=== PATIENT | male | born 1985 | race Two or more races ===

== ENCOUNTER 2024-12-10 22:20 | Emergency (ER) | payer MEDICAID, SELFPAY ==
[2024-12-10 22:21] VITALS: BMI 23.6
--- NOTE | 2024-12-10 22:30 | EDNOTE_ITS ---
ED Abdominal Pain RME/HPI General Chief Complaint: Abdominal Pain Stated complaint: ABDOMINAL PAIN Time seen by provider: 12/10/24 22:58 Arrival date/time: 12/10/24 22:20 RME / HPI RME / HPI narrative: See [facility] for Dr. Dewey's HPI documentation. Related Data Previous Rx's ?Medication ?Instructions ?Recorded acetaminophen 300 mg-codeine 30 mg 2 tab PO Q8H PRN pa in #10 tabs 12/11/24 tablet cefdinir 300 mg capsule 300 mg PO BID 5 days #10 cap s 12/11/24 metronidazole 500 mg tablet 500 mg PO BID 5 days #10 t abs 12/11/24 ondansetron 4 mg disintegrating 4 mg PO TID PRN nausea and 12/11/24 tablet vomiting 30 days #10 tabs Allergies Allergy/AdvReac Type Severity Reaction Status Date / Time No Known Allergies Allergy Verified 12/10/24 23:15 Review of Systems Review of Systems Systems Reviewed: All systems reviewed, normal except as documented Past Medical History Social History SMOKING STATUS: Never smoker ED Exam Narrative Physical exam: See [facility] for Dr. Dewey's physical exam documentation. Course Quality Measures none Orders Category Date Time Status CT Screening NOW Care 12/10/24 22:59 Active Saline [Insert IV] NOW Care 12/10/24 22:[address] abdomen pelvis w con Stat Exams 12/10/24 22:59 Taken US gall bladder Stat Exams 12/11/24 01:16 Taken Amylase Stat Lab 12/10/24 23:24 Completed Bilirubin,Direct Stat Lab 12/10/24 23:24 Completed CBC Stat Lab 12/10/24 23:24 Completed CMP [Comprehensive Metabolic Panel] Stat Lab 12/10/24 23:24 Completed Lipase Stat Lab 12/10/24 23:24 Completed Magnesium Stat Lab 12/10/24 23:24 Completed UA, C/S IF [Urinalysis, C/S if Indicated] Stat Lab 12/10/24 23:44 Completed Famotidine Inj [Pepcid Inj] Med 12/10/24 22:58 Discontinued 20 mg IVP X1 ONE Ketorolac Inj [Toradol Inj] Med 12/10/24 22:58 Discontinued 30 mg IVP X1 ONE Morphine* Inj Med 12/10/24 22:58 Discontinued 4 mg IV X1 ONE Ondansetron Inj [Zofran Inj] Med 12/10/24 22:58 Discontinued 4 mg IVP X1 ONE Pantoprazole Inj [Protonix Inj] Med 12/10/24 22:58 Discontinued 40 mg IVP X1 ONE Sodium Chloride 0.9% 1000 ml [Ns] 1,000 ml Med 12/10/24 22:58 Discontinued IV 999 mls/hr cefTRIAXone/D5w 1gm IV premix [Rocephin/D5w 1gm IV Med 12/11/24 02:45 Discontinued premix] 1 gm in 50 ml IV X1 metroNIDAZOLE/NS 500 MG IVPB [Flagyl 500 mg IV] Med 12/11/24 02:45 Disco ntinued 500 mg in 100 ml IV X1 Vital Signs Vital signs: Vital Signs Temperature 98.0 F 12/10/24 22:46 Pulse Rate 92 12/10/24 22:46 Respiratory Rate 18 12/10/24 22:46 Blood Pressure 115/73 12/10/24 22:46 Pulse Oximetry (%) 95 12/10/24 22:46 Oxygen Delivery Method Room Air 12/10/24 22:46 Abdominal Pain MDM MDM Narrative MDM Narrative:: This section includes all my notes and documentations, including HPI, PE, and ED course. Jose Dewey MD HPI: 38-year-old male here with several hours of abdominal pain and vomiting and diarrhea. No history of abdominal surgery. No other complaints. ROS: All negative except as documented in HPI. Physical Exam: General: Alert and oriented. In obvious pain. Eyes: Conjunctivae and lids clear. ENT: No nasal congestion. Neck: Supple. Heart: RRR. Lungs: No respiratory distress. Good air movement. No rhonchi, wheezing, rales. Abdomen: Soft and severe diffuse tenderness, difficult to localize. Normal bowel sounds. No distension. No rebound or guarding. Back: No CVA tenderness. Skin: Warm and dry. Neuro: Alert and oriented X 3. I reviewed all diagnostic test results. My review of the gallbladder report is NAD. My review of the CT abdomen pelvis report is enteritis. Blood/urine test remarkable for leukocytosis. At this point, diagnoses include: Enteritis Treatment here included: IVF Zofran 4 mg IV Toradol 30 mg IV Morphine 4 mg IV Famotidine 20 mg IV and Protonix 40 mg IV Rocephin 1 g IV and Flagyl 500 mg IV Recommended more outpatient care. Based on my best medical judgment, made decision no further evaluation or treatment indicated at this time. Patient understands and agrees to the discharge instructions customized and printed, see below. Discharge instructions from Dr. Dewey: 1. After evaluation, your symptoms are due to infection/inflammation of your intestines. 2. Take Cipro and Flagyl for the infection. 3. Zofran for nausea/vomiting. 4. Tylenol with codeine for severe pain. 5. Clear liquid diet for 24 hours then advance as tolerated. 6. To prevent dehydration, increase oral fluid and maintain clear urine. If dark or yellow, increase oral fluid. 7. See a private doctor on 12/13/2024 for recheck. Ask to review all test results and official radiology reports, to make sure you receive all necessary follow-ups and monitoring. To assess for serious intra-abdominal condition, ask for help with more investigation not available here in the ER. Such as EGD or scoping the stomach, colonoscopy or scoping the colon, and referral to see matrix bath attendant. 8. Seek immediate medical care with worsening, fever, or with any concerns. Jose Dewey MD Patient data External records reviewed:: [facility] previous records (Per chart review, patient has no previous ED visits or admissions to this facility.) Clinical information provided by:: patient Social determinants that could affect healthcare access:: none Patient has the following chronic illnesses:: none How is presenting disease/condition affected by chronic disease/condition?: no chronic disease Evaluation data The following diagnostics were reviewed and interpreted by me:: lab results and radiology exam(s) Lab and/or radiology exams considered but not ordered:: none Interpretation Summary: I reviewed all diagnostic test results. My review of the gallbladder report is NAD. My review of the CT abdomen pelvis report is enteritis. Blood/urine test remarkable for leukocytosis. Medications / Prescriptions Medications or Prescriptions considered but not ordered:: none Medication administrations:: Medication Administration History Discontinued Medications Famotidine (Famotidine Inj 10 Mg/Ml Vial 2 Ml) 20 mg IVP X1 ONE Stop: 12/10/24 22:59 Last Admin: 12/10/24 23:53 Dose: 20 mg Documented By: AM Sodium Chloride (Ns) 1,000 mls @ 999 mls/hr IV .Q1H1M ONE Stop: 12/10/24 23:58 Last Infusion: 12/11/24 02:50 Dose: Infused Documented By: Admin: 12/10/24 23:53 Dose: 999 mls/hr Documented By: AM Ceftriaxone Sodium/Dextrose (Rocephin/D5w 1gm Iv Premix) 1 gm in 50 mls @ 100 mls/hr IV X1 ONE Stop: 12/11/24 03:14 Last Infusion: 12/11/24 03:49 Dose: Infused Documented By: Admin: 12/11/24 03:16 Dose: 100 mls/hr Documented By: AM Metronidazole (Flagyl 500 Mg Iv) 500 mg in 100 mls @ 100 mls/hr IV X1 ONE Stop: 12/11/24 03:44 Last Admin: 12/11/24 03:51 Dose: 100 mls/hr Documented By: AM Ketorolac Tromethamine (Ketorolac Inj 30 Mg/Ml Vial) 30 mg IVP X1 ONE Stop: 12/10/24 22:59 Last Admin: 12/10/24 23:52 Dose: 30 mg Documented By: AM Morphine Sulfate (Morphine Sulf Inj 4 Mg/Ml Vial) 4 mg IV X1 ONE Stop: 12/10/24 22:59 Last Admin: 12/10/24 23:53 Dose: 4 mg Documented By: AM Ondansetron HCl (Ondansetron Inj 2 Mg/Ml Inj 2 Ml) 4 mg IVP X1 ONE; Protocol Stop: 12/10/24 22:59 Last Admin: 12/10/24 23:52 Dose: 4 mg Documented By: AM Pantoprazole Sodium (Pantoprazole Inj 40 Mg Vial) 40 mg IVP X1 ONE Stop: 12/10/24 22:59 Last Admin: 12/10/24 23:52 Dose: 40 mg Documented By: AM Treatment here included: IVF Zofran 4 mg IV Toradol 30 mg IV Morphine 4 mg IV Famotidine 20 mg IV and Protonix 40 mg IV Rocephin 1 g IV and Flagyl 500 mg IV Consultations Consultation(s) initiated? (list below): No Diagnosis Differential diagnosis abdominal pain: acute appendicitis, calculus of kidney, diverticulitis, gastroenteritis, pancreatitis and small bowel obstruction Most likely diagnosis given after review of the tests above:: Enteritis Admission Indicated Admission indicated?: not indicated Explain why admission is indicated or not indicated:: With significant improvement and no condition needing emergent intervention, there was no indication for admission. Admission Request Was there a request for admission?: No Disposition Plan Disposition Plan: Discharge Discharge Attestation Discharge Attestation: The patient and all family members were given an opportunity to ask questions and understood the discharge instructions. Discharge instructions specifically effects, indications for sooner follow up or return to the emergency department, and the expected course of current diagnosis. Patient condition: Stable Discharge Plan Plan Patient Disposition: HOME (Self Care) Prescriptions/Referrals Prescriptions/Med Rec: New metronidazole 500 mg tablet 500 mg PO BID 5 Days Qty: 10 0RF acetaminophen-codeine 300-30 mg tablet 2 tab PO Q8H MDD 6 PRN (Reason: pain) Qty: 10 0RF ondansetron 4 mg tablet,disintegrating 4 mg PO TID PRN (Reason: nausea and vomiting) 30 Days Qty: 10 0RF cefdinir 300 mg capsule 300 mg PO BID 5 Days Qty: 10 0RF Referrals: Darwin Gold MD [Primary Care Provider, Family Practice] - In 1 week Problem List Clinical Impression: Enteritis Patient/Caregiver Discharge Instructions Discharge Activity: activity as tolerated Education Materials: ED Gastroenteritis, Noninfectious Additional Instructions: Discharge instructions from Dr. Dewey: 1. After evaluation, your symptoms are due to infection/inflammation of your intestines. 2. Take Cipro and Flagyl for the infection. 3. Zofran for nausea/vomiting. 4. Tylenol with codeine for severe pain. 5. Clear liquid diet for 24 hours then advance as tolerated. 6. To prevent dehydration, increase oral fluid and maintain clear urine.? If dark or yellow, increase oral fluid. 7. See a private doctor on 12/13/2024 for recheck. Ask to review all test results and official radiology reports, to make sure you receive all necessary follow-ups and monitoring. To assess for serious intra-abdominal condition, ask for help with more investigation not available here in the ER.? Such as EGD or scoping the stomach, colonoscopy or scoping the colon, and referral to see matrix bath attendant. 8. Seek immediate medical care with worsening, fever, or with any concerns. Instrucciones de nga del Dr. Dewey: 1. Tras la evaluaci?n, fallon s?ntomas se deben a claribel infecci?n/inflamaci?n intestinal. 2. Blawnox Cipro y Flagyl para la infecci?n. 3. Zofran para las n?useas/v?mitos. 4. Tylenol con code?na para el dolor intenso. 5. Dieta l?quida emily steve 24 horas; luego, aumente la dosis seg?n la tolerancia. 6. Para prevenir la deshidrataci?n, aumente la ingesta de l?quidos y mantenga la orina emily. Si la orina es oscura o amarilla, aumente la ingesta de l?quidos. 7. Consulte a un m?dico particular el 2024 para claribel revisi?n. Solicite revisar todos los resultados de las pruebas y los informes radiol?gicos oficiales para asegurarse de recibir el seguimiento y la monitorizaci?n necesarios. Para evaluar claribel posible afecci?n intraabdominal grave, solicite ayuda con estudios adicionales que no est?n disponibles en urgencias, jaron claribel endoscopia digestiva nga (TUNG), claribel colonoscopia y claribel derivaci?n a un gastroenter?logo. 8. Busque atenci?n m?dica inmediata si empeora, presenta fiebre o cualquier otra preocupaci?n. Print Language: Lithuanian Stand Alone Forms: [employer]ady Award Info., Patient Portal Info Letter
[2024-12-10 22:46] VITALS: BP 115/73; PULSE 92; RESP 18; TEMP 36.7; O2SAT 95
--- NOTE | 2024-12-10 22:59 | XR_ITS ---
Examination: CT abdomen with intravenous contrast CT pelvis with intravenous contrast 2-D coronal reconstructions 2-D sagittal reconstructions Date and time of exam: December 11, 2024, 0101 hours INDICATIONS: Severe abdominal pain onset today. CTDI: vol (mGy) 6.57 DLP: (mGycm) 393 Technique: Multiple axial sections of the abdomen and pelvis have been obtained. 64 slice high-resolution scanner used. 3 mm axial sections have been obtained, post intravenous injection 60 cc [id number] 2-D sagittal, coronal reconstructions obtained. Low dose protocols were performed. One or more of the following dose reduction techniques were used; automated exposure control, adjustment of the mA and/or KV according to patient size, use of iterative reconstruction technique. Findings: No visualized liver or splenic lesion No gallstones No pancreatic or adrenal mass 1 mm upper pole nonobstructing left renal calculus, no renal edema hydronephrosis or ureteral calculi Normal appendix Moderate degenerative disc disease L5-S1 Abnormal small bowel, fluid distended with wall thickening, no incarcerated hernia defect No prostatomegaly Urinary bladder intact Osseous structures intact IMPRESSION: 1 mm upper pole nonobstructing left renal calculus Abnormal small bowel, fluid distended with wall thickening, differential would include enteritis such as Crohn's disease, early small bowel obstruction not excluded, clinical correlation and follow-up advised
[2024-12-10] MEDS: KETOROLAC INJ 30 MG/ML VIAL IVP (23:52)
[2024-12-10] MEDS: ONDANSETRON INJ 2 MG/ML INJ 2 ML 4 MG IVP (23:52)
[2024-12-10] MEDS: FAMOTIDINE INJ 10 MG/ML VIAL 2 ML 20 MG IVP (23:53)
[2024-12-10] MEDS: SODIUM CHLORIDE 0.9% 1000 ML 1,000 ML 999 ML IV (23:53)
[2024-12-10] MEDS: MORPHINE SULF INJ 4 MG/ML VIAL IV (23:53)
[2024-12-10 23:54] LABS: Collection Type, Urine Clean Catch
[2024-12-10 23:55] LABS: Basophils # (Auto) 0.0 Thou/mm3 (0.0-0.2); Basophils % (Auto) 0 % (0-2.5); Eosinophils # (Auto) 0.0 Thou/mm3 (0.0-0.5); Eosinophils % (Auto) 0 % (0-10); Hematocrit 42.2 % (41.0-53.0); Hemoglobin 14.4 g/dL (13.5-16.0); Immature Granulocytes Auto 0.06 Thou/mm3 (0.00-0.00); Lymphocytes # (Auto) 0.8 Thou/mm3 (1.0-4.8); Lymphocytes % (Auto) 6 % (10-50); Mean Corpuscular HGB Conc 34.1 g/dl (31.0-37.0); Mean Corpuscular Hemoglobin 31.1 pg (25.0-35.0); Mean Corpuscular Volume 91 fL (80-100); Monocytes # (Auto) 0.4 Thou/mm3 (0.0-0.8); Monocytes % (Auto) 3 % (0-12); Neutrophils # (Auto) 13.2 Thou/mm3 (1.8-7.7); Neutrophils % (Auto) 91 % (37-80); Nucleated Red Blood Cell # 0.00 Thou/mm3 (0.00-0.00); Nucleated Red Blood Cell % 0 /100 WBC (0); Platelet Count 274 Thou/mm3 (140-440); RDW Standard Deviation 45.4 fL (35.1-43.9); Red Blood Count 4.63 Miln/mm3 (4.50-5.90); White Blood Count 14.6 Thou/mm3 (3.8-10.6)
[2024-12-11] LABS: Bilirubin,Urine Negative (Negative); Blood,Urine Negative (Negative); Clarity,Urine Clear (Clear/Hazy); Color,Urine Yellow (Lt Yel-Yel); Culture Indicated,Urine Not Indicated; Glucose, Urine Negative (Negative); Ketones,Urine Negative (Negative); Leukocyte Esterase,Urine Negative (Negative); Nitrite,Urine Negative (Negative); PH,Urine 6.5 (5.0-7.0); Protein,Urine Trace (Neg - Trace); RBC,Urine 13 /hpf (0-3); Specific Gravity,Urine 1.029 (1.001-1.035); Squamous Epithelial Cell,Urine < 1 /hpf (0-5); Urobilinogen,Urine Negative mg/dL (0.0-1.0); WBC,Urine 2 /hpf (0-5)
[2024-12-11 00:14] LABS: Alanine Aminotransferase 25 U/L (10-49); Albumin, Serum 5.0 gm/dL (3.5-5.0); Albumin/Globulin Ratio 2.0 (1.2-2.2); Alkaline Phosphatase 99 U/L (46-116); Amylase 86 U/L (30-118); Anion Gap 12 (7-16); Aspartate Amino Transferase 36 U/L (0-34); BUN/Creatinine Ratio 14 Ratio (12-20); Bilirubin,Direct 0.2 mg/dL (0.0-0.3); Bilirubin,Total 0.7 mg/dL (0.3-1.2); Blood Urea Nitrogen 15 mg/dL (9-23); Calcium 10.0 mg/dL (8.3-10.6); Calcium (Corrected) 10.0 mg/dL (8.5-10.1); Carbon Dioxide 30.3 mMol/L (20.0-31.0); Chloride 100 mMol/L (98-107); Creatinine (Component) 1.1 mg/dL (0.6-1.3); Estimated Creatinine Clearance 94.9 mL/min (>60); Globulin 2.5 gm/dL (2.3-3.5); Glucose 168 mg/dL (74-106); Lipase 28 U/L (12-53); Magnesium 1.9 mg/dL (1.6-2.6); Osmolality,Calculated 287 (275-295); Potassium 4.2 mMol/L (3.4-5.1); Sodium 142 mMol/L (136-145); Total Protein 7.5 gm/dL (5.7-8.2); eGFR > 60 See Note
[2024-12-11 00:38] VITALS: BP 114/76; PULSE 81; RESP 18; TEMP 36.7; O2SAT 98
--- NOTE | 2024-12-11 01:16 | XR_ITS ---
Examination: Abdomen sonogram, Limited Date and time of exam: December 11, 2024, 0112 hours INDICATIONS: Onset mid abdominal pain today Technique: Real-time ramírez scale transabdominal sonographic images of the upper abdomen obtained. Findings: Normal gallbladder Normal common bile duct 0.2 cm Pancreatic head 2.2 cm Liver 16.3 cm fatty infiltration no focal liver lesions Normal hepatopetal portal venous flow Patent IVC IMPRESSION: Normal gallbladder Normal common bile duct
[2024-12-11 01:55] VITALS: BP 117/76; PULSE 76; RESP 18; TEMP 36.8; O2SAT 98
--- NOTE | 2024-12-11 02:38 | PRELIM_ITS ---
CT scan of the abdomen and pelvis with intravenous contrast (axial sections with sagittal and coronal reformats): December 11, 2024 at 0059 hours Clinical History: Severe abdominal pain, difficult to localize. Comparison: No prior study is available for comparison. Findings: The lung bases are clear. There is a punctuate nonobstructing calculus in the upper pole calyx of the left kidney. The liver, gallbladder, pancreas, spleen, right kidney and adrenals are unremarkable. There are dilated fluid filled small bowel loops without transition. The appendix is within normal limits (images [id number]). There is no mesenteric or retroperitoneal adenopathy. The urinary bladder is unremarkable. There is no free fluid or free air. The osseous structures are unremarkable. Impression: Findings suggestive of ileus/enteritis. A punctuate nonobstructing left renal calculus. Report Electronically Signed By: Wally Peter 12/11/2024 2:37:43 AM [EST]
[2024-12-11] MEDS: cefTRIAXone/D5w 1gm IV premix 1 GM/50 ML BAG IV (03:16)
[2024-12-11] MEDS: metroNIDAZOLE/NS 500 MG IVPB 500 MG/100 ML BAG 100 MG IV (03:51)
[2024-12-11 04:03] VITALS: BP 109/63; PULSE 70; RESP 18; TEMP 36.4; O2SAT 95
== END 2024-12-11 04:59 | disposition home or self-care (01) ==
PROVIDERS: Emergency Provider Emergency Medicine; PCP Family Medicine
DX: K52.9 Noninfective gastroenteritis and colitis, unspecified (principal)
CPT/HCPCS: 36415; 74177; 76705; 80053; 81001; 82150; 82248; 83690; 83735; 85025; 96361; 96365; 96366; 96375; 99283; A4649; J0696; J1885; J2270; J2405; J2470; J3490; J7030; Q9967; J1836